=== PATIENT | female | born 2005 | race Caucasian/White ===

== ENCOUNTER 2025-06-02 07:07 | Outpatient (REF) | payer OTHER, SELFPAY ==
--- NOTE | ~2025-06-02 | US_ITS ---
EXAMINATION: US PELVIS CLINICAL INFORMATION: Irregular menses for the last 6 months COMPARISON: None available. TECHNIQUE: Ultrasound of the pelvis is performed using both transabdominal transducers along with Doppler. Transvaginal imaging was declined by the patient. FINDINGS: Uterus: The uterus is anteverted and measures 7.3 x 2.6 x 4.3 cm. The double wall endometrial thickness is 3 mm. The uterus is smooth in contour and has normal myometrial echogenicity. No visible fibroid. Adnexa: Both ovaries are visualized. There is normal color flow to the adnexa. There is no ovarian torsion. There is no pelvic ascites or fluid collection. Right ovary measures 3.2 x 1.6 x 3.2 cm. Left ovary measures 4.0 x 2.0 x 3.3 cm. US/US pelvic complete IMPRESSION: Unremarkable pelvic ultrasound. Electronically signed by: Morales Hernández MD 06/02/2025 04:28 PM EDT
--- OUTSIDE RECORDS SUMMARY | 2025-06-02 07:18 | XMS_ITS | Patient Health Record ---
Author Organization [facility] Address [address] [place] [address] Care Team Providers Care Mini Bar Attendant Name Role Phone Arianne Kebede Primary Care Provider [phone] Cherelle Mahmood Unavailable [phone] Thermitus, Seraphine Unavailable Allergies No Known Allergies Results Component Value Reference Range Flag Notes Lipid Panel w/ Chol/HDL Rati o-[id number] Reviewed date:09/05/2024 02:15:23 PM Interpretation: Performing Lab:[facility] [place], [address] [place] [address], Phone - [phone], Director - Jodry Notes/Report: Chlamydia/GC SACHIN, Confirmati on-[id number] Reviewed date:09/10/2024 08:44:12 AM Interpretation:Negative Performing Lab:[id number] [place], [address], Phone - [phone], Director - MDJodry Notes/Report: Chlamydia trachomatis, SACHIN Negative Negative Neisseria gonorrhoeae, SACHIN Negative Negative No Serum Gel Received TNP Test not performed. No serum gel received. TEST: [id number] Lipid Panel w/ Chol/HDL Ratio CBC With Differential/Platel et-[id number] Reviewed date:09/10/2024 11:07:40 AM Interpretation:TNP Performing Lab:[facility] [place], [address], Phone - [phone], Director - MDJodry Notes/Report: WBC TNP Test not perfo rmed. No lavender top tube submitted. Lipid Panel w/ Chol/HDL Rati o-[id number] Reviewed date:10/13/2024 08:37:46 AM Interpretation:Normal Performing Lab:[facility] [place], [address] [facility], [place], Phone - [phone], Director - Eveline Notes/Report: Cholesterol, Total 192 100-199 mg/dL Triglycerides 65 0-149 mg/dL HDL Cholesterol 73 >39 mg/dL VLDL Cholesterol Darrius 12 5-40 mg/dL LDL Chol Calc ([facility]) 107 0-99 mg/dL H T. Chol/HDL Ratio 2.6 0.0-4.4 ratio T. Chol/HDL Ratio Men Women 1/2 Avg.Risk 3.4 3.3 Avg.Risk 5.0 4.4 2X Avg.Risk 9.6 7.1 3X Avg.Risk 23.4 11.0 CBC With Differential/Platel et-[id number] Reviewed date:10/13/2024 08:37:35 AM Interpretation:Normal Performing Lab:[facility] [place], [address] [facility], [place], Phone - [phone], Director - Eveline Notes/Report: WBC 6.2 3.4-10.8 x10E3/uL RBC 4.93 3.77-5.28 x10E6/uL Hemoglobin 14.1 11.1-15.9 g/dL Hematocrit 43.3 34.0-46.6 % MCV 88 79-97 fL MCH 28.6 26.6-33.0 pg MCHC 32.6 31.5-35.7 g/dL RDW 14.2 11.7-15.4 % Platelets 320 150-450 x10E3/uL Neutrophils 59 Not Estab. % Lymphs 30 Not Estab. % Monocytes 8 Not Estab. % Eos 2 Not Estab. % Basos 1 Not Estab. % Neutrophils (Absolute) 3.7 1.4-7.0 x10E3/uL Lymphs (Absolute) 1.8 0.7-3.1 x10E3/uL Monocytes(Absolute) 0.5 0.1-0.9 x10E3/uL Eos (Absolute) 0.1 0.0-0.4 x10E3/uL Baso (Absolute) 0.0 0.0-0.2 x10E3/uL Immature Granulocytes 0 Not Estab. % Immature Grans (Abs) 0.0 0.0-0.1 x10E3/uL QuantiFERON-TB Gold Plus-[id number] Reviewed date:08/26/2024 05:39:22 PM Interpretation: Performing Lab:[facility] [place], [address], [place], Phone - [phone], Director - Eveline Notes/Report: QuantiFERON Incubation Incubation performed. QuantiFERON-TB Gold Plus Negative Negative No response to M tuberculosis antigens detected. Infection with M tuberculosis is unlikely, but high risk individuals should be considered for additional testing (ATS/IDSA/CDC Clinical Practice Guidelines, 2017). The reference range is an Antigen minus Nil result of <0.35 IU/mL. Chemiluminescence immunoassay methodology QuantiFERON Criteria QuantiFERON-TB Gold Plus is a qualitative indirect test for M tuberculosis infection (including disease) and is intended for use in conjunction with risk assessment, radiography, and other medical and diagnostic evaluations. The QuantiFERON-TB Gold Plus result is determined by subtracting the Nil value from either TB antigen (Ag) value. The Mitogen tube serves as a control for the test. QuantiFERON TB1 Ag Value 0.04 QuantiFERON TB2 Ag Value 0.07 QuantiFERON Nil Value 0.04 QuantiFERON Mitogen Value >10.00 Reason For Referral No Information Medications Medication SIG (Take, Route, Frequency, Duration) Notes Start Date End Date Status Zoloft 50 mg tablet 1.5 tabs orally once a day [facility] Active Immunizations Vaccine Route Administration Date Status Comme [facility] Flu Zone Quadrivalent NEW IM Intramuscular 07/28/2021 Administered Covid Vaccine Pfizer 5yrs-12yrs Unknown 11/22/2020 Administered Covid Vaccine Pfizer 5yrs-12yrs Unknown 12/14/2020 Administered Covid Vaccine Pfizer 5yrs-12yrs Unknown 08/25/2021 Administered Flulaval Quad Influenza vaccine Unknown 06/25/2020 Administered Flulaval Quad Influenza vaccine Unknown 07/28/2021 Administered Flulaval Quad Influenza vaccine Unknown 07/06/2022 Administered Flulaval Quad Influenza vaccine Unknown 09/17/2023 Administered Fluzone 0.5 ml prefilled syringe Unknown 05/16/2024 Administered IMM TDaP IM Intramuscular 09/04/2024 Administered IMM, DTaP Unknown 2003 Administered IMM, DTaP Unknown 2003 Administered IMM, DTaP Unknown 2003 Administered IMM, DTaP Unknown 12/06/2004 Administered IMM, DTaP Unknown 06/18/2008 Administered IMM, GARDASIL purchased IM Intramuscular 04/04/2016 Admini stered IMM, GARDASIL , state IM Intramuscular 08/09/2015 Administ ered IMM, GARDASIL , state IM Intramuscular 11/09/2015 Administ ered IMM, HEPATITIS A, PED, purchased Unknown 03/18/2013 Administered IMM, HEPATITIS A, PED, purchased Unknown 08/06/2014 Administered IMM, HEPATITS B , 0-19 Unknown 2003 Administered IMM, HEPATITS B , 0-19 Unknown 2003 Administered IMM, HEPATITS B , 0-19 Unknown 03/18/2004 Administered IMM, HIB Unknown 2003 Administered IMM, HIB Unknown 2003 Administered IMM, HIB Unknown 2003 Administered IMM, HIB Unknown 09/05/2004 Administered IMM, INFLUENZA, QUAD, FLUMIST STATE Unknown 08/06/2014 Administered IMM, INFLUENZA, QUAD, FLUMIST STATE IN intranasal 08/09/2015 Administered IMM, IPV Unknown 2003 Administered IMM, IPV Unknown 2003 Administered IMM, IPV Unknown 06/07/2004 Administered IMM, IPV Unknown 06/18/2008 Administered IMM, Men B, Counts Include [facility] STATE IM Intramuscular 09/01/2019 Adm inistered IMM, Men B, [facility] IM Intramuscular 03/04/2020 Adm inistered IMM, MENINGOCOCCAL - MENACTRA, state Unknown 08/06/2014 Administered IMM, MENINGOCOCCAL - MENACTRA, state IM Intramuscular 09/01/2019 Administered IMM, MMR Unknown 06/07/2004 Administered IMM, MMR Unknown 06/18/2008 Administered IMM, Tetanus, Diphtheria, Pertussis Unknown 08/06/2014 Administered IMM, VARICELLA Unknown 09/05/2004 Administered IMM, VARICELLA Unknown 06/18/2008 Administered IMM,--- PCV7 Unknown 2003 Administered IMM,--- PCV7 Unknown 2003 Administered IMM,--- PCV7 Unknown 03/18/2004 Administered IMM,--- PCV7 Unknown 09/05/2004 Administered IMM,---INFLUENZA-FLUMIST STATE SUPPLIED Unknown 06/27/2011 Administered INFLUENZA Single dose IM Intramuscular 08/17/2016 Administ ered INFLUENZA Single dose IM Intramuscular 09/01/2019 Administ ered Pfizer Unknown 05/16/2024 Administered Social History Social History Additional Details Category Social Info Options Details Social History Occupation student Alcohol/Drugs denies Pets at Home yes two dogs Home Type smoke detector a nd carbon monoxide alarm present Parents single , dad no t really involved Family Smoking no Sexually Active yes Guns in Home no [place] Notes: smoke detector and carbon mo noxide detectors present at home smoke detector and carbon mo noxide detectors present at home smoke detector and carbon mo noxide detectors present at home smoke detector and carbon mo noxide detectors present at home smoke detector and carbon mo noxide detectors present at home smoke detector and carbon mo noxide detectors present at home smoke detector and carbon mo noxide detectors present at home Problems Problem Type SNOMED Code ICD Code Onset Dates Problem Status W/U Status Risk Notes Problem Anxiety (08328051) Anxiety (F41.9) Active confirmed Problem Flexural eczema (34628120) Flexural eczema (L20.82) Problem resolved confirmed Problem Acne vulgaris (34799487) Acne vulgaris (L70.0) Problem resolved confirmed Problem Vasovagal syncope (111488813) Syncope, vasovagal (R55) Problem resolved confirmed Problem Mild major depression, single episode (06517237) Current mild episode of major depressive disorder without prior episode (F32.0) Problem resolved confirmed Vital Signs Temperature 98.5 T degrees Fahrenheit 09/04/2024 Blood pressure diastolic 70 mm Hg 09/04/2024 Height 68 in 09/04/2024 Blood pressure systolic 108 mm Hg 09/04/2024 Weight 166.2 lbs 09/04/2024 BMI 25.27 09/04/2024 Procedures Procedure Date Ordered Date Performed Result Body Sit e HEARING TEST ,PURE TONE AUDIOMETRY, 09/04/2024 09/04/2024 Normal Encounters Encounter Location Date Provider Diagnosis [facility] [address] [place] [address] 09/04/2024 Cherelle Mahmood Encounter for well adult exam without abnormal findings Z00.00 and Anxiety F41.9 [facility] [address] [place] [address] 08/15/2024 Seraphine Thermitus Screening due Z13.9 [facility] [address] [place] [address] 09/03/2024 [facility] [address] [place] [address] 09/03/2024 [facility] [address] [place] [address] 10/09/2024 Cherelle Timoteo Screening for lipid disorders Z13.220 and Screening for deficiency anemia Z13.0 Assessments Encounter Date Diagnosis (ICD Code) Assessment Notes Treatment Notes Treatment Clinical Notes Section Notes 08/15/2024 Screening due (ICD-10 - Z13.9) 09/04/2024 Encounter for well adult exam without abnormal findings (ICD-10 - Z00.00) Patient is doing well. Addressed age appropriate anticipatory guidance and safety recommendations. Answered all questions and concerns during appointment. Patient verbalized understanding of care plan. 10/09/2024 Screening for deficiency anemia (ICD-10 - Z13.0) 10/09/2024 Screening for lipid disorders (ICD-10 - Z13.220) 09/04/2024 Anxiety (ICD-10 - F41.9) Seeing [facility] one every 3 months, feels she is doing well with current medication Plan Of Treatment Pending Test Test Name Order Date HEARING TEST ,PURE TONE AUDIOMETRY, 04/2021 Next Appt Details Provider Name:Emily Ba, 09/04/2025 09:00:00 AM, [address], [place], [address], Insurance Providers Payer Name Payer Address Payer Phone Subscriber Number Group Number Insured Name Patient Relationship to Insured Coverage Start Date Coverage End Date [employer] /[employer] INT [address] [address] [place] [address] [phone] [id number] Shagufta Wagoner Self - patient is the insured Medical (General) History Medical History History ICD Code Amylase and Trypsin def -- resolved Persisitent diarrhea- had up per and lower bowel bx; duodenitis Rx Creon 10 tid, Zantac-- d/c 06-28: Severe anxiety: referred to [facility] 06-28: Tick bite and rash: ordered Lyme Ab titer 06-26-09 [facility] peds clinic- fever, likely viral URI 4-12 Elbow rash - eczema 2016 Menarche 10-18 [facility] [facility] consult- for rt knee pain since 8-18 ; rt knee sprain with underlying chondromalacia and mild maltracking COVID + [place] Jul 2020 Acne vulgaris (resolved 08/23/2023) unde fined Syncope, vasovagal (resolved 08/23/2023) Current mild episode of eliana r depressive disorder without prior episode (resolved 08/23/2023) Flexural eczema (resolved 08/23/2023) Surgical History Surgery Date(Month/Year)
== END 2025-06-02 07:08 | disposition home or self-care (01) ==
LOC: HO.UMASIMG 07:07
PROVIDERS: Visit Provider Nurse Practitioner Women's Health
DX: N92.6 Irregular menstruation, unspecified (principal)
CPT/HCPCS: 76856